=== PATIENT | female | born 1995 | race Caucasian/White ===

== ENCOUNTER 2020-05-31 16:36 | Outpatient (CLI) | payer OTHER, BC, SELFPAY ==
--- NOTE | ~2020-05-31 | US_ITS ---
EXAMINATION: US OB <= 14 weeks fetus DATE: 05/31/2020 17:17 INDICATION: Spotting during first trimester TECHNIQUE: Real-time pelvic transabdominal and transvaginal ultrasound was performed. COMPARISON: None. FINDINGS: The uterus measures 11.9 x 6.4 x 8.5 cm. There is an intrauterine gestational sac. A yolk sac is identified. heart motion is identified measuring 169 beats per minute (bpm) by M-mode Do ppler. The crown rump length measures 3.9 cm , which correlates with an estimated gestational a ge of 10 weeks and 3 day(s) (+/-) 5 day(s). The ovaries are not visualized however no adnexal abnormality is seen. There is no free fluid in the pelvis. IMPRESSION: 1. Live intrauterine with an estimated gestational age of 10 weeks and 3 day(s) (+/-) 5 day (s) and an estimated delivery date of 12/24/2020. Reviewed, dictated and finalized at location A. IMPRESSION: 1. Live intrauterine with an estimated gestational age of 10 weeks an d 3 day(s) (+/-) 5 day(s) and an estimated delivery date of 12/24/2020.
== END 2020-05-31 16:37 | disposition home or self-care (01) ==
PROVIDERS: PCP Obstetrics & Gynecology Gynecology; Visit Provider Obstetrics & Gynecology Gynecology
DX: O26.851 Spotting complicating pregnancy, first trimester (principal); Z3A.10 10 weeks gestation of pregnancy
CPT/HCPCS: 76801

== ENCOUNTER → 2020-07-26 15:21 | Outpatient (CLI) | payer OTHER, BC, SELFPAY ==
--- NOTE | ~2020-07-26 | US_ITS ---
EXAMINATION: US OB >= 14 weeks Fetus DATE: 07/26/2020 15:56 INDICATION: survey TECHNIQUE: Multiple obstetric sonographic images performed. FINDINGS: Ultrasound dated 05/31/2020 There is a single living fetus in vertex presentation. The placenta is anterior without placenta pre via. Placental margin measures 3.7 cm from the cervix. There is a linear septation in the amniotic fl uid which could represent uterine synechia versus amniotic band Amniotic fluid volume is normal. cardiac activity and movement is noted with a heart rate of 163 beats per minute. The following anatomy was identified as normal: 4 chamber heart 3 vessel cord cord insertion kidneys urinary bladder stomach spine diaphragm ventricles cisterna magna cerebellum The following biometric data were obtained: BPD: 43mm corresponds to gestational age 19 weeks 0 days. Head circumference: 164 mm corresponds to gestational age 19 weeks 1 days. Abdominal circumference: 135 mm corresponds to gestational age 19 weeks 0 days. Femur length: 29 mm corresponds to gestational age 19 weeks 0 days. Head circumference to abdominal circumference ratio: 1.21 (normal range for expected gestational age is 1.09-1.26). Estimated weight: 268 grams +/- 40 grams using Hadlock method. IMPRESSION: 1: Single living intrauterine with an estimated gestational age of 18weeks 6days by initial ultrasound measurements, with an EDC of 12/21/2020 in vertex presentation. 2. Normal survey. 3: Linear septation in the amniotic fluid which could represent uterine synechia versus amniotic band . Recommend attention to this on follow-up examination. Reviewed, dictated and finalized at location A. IMPRESSION: 1: Single living intrauterine with an estimated gestational age of 18 weeks 6days by initial ultrasound measurements, with an EDC of 12/21/2020 in [place] presentation. 2. Normal survey. 3: Linear septation in the amniotic fluid which could represent uterine synechi a versus amniotic band. Recommend attention to this on follow-up examination.
== END ==
PROVIDERS: PCP Nurse Practitioner Family; Visit Provider Obstetrics & Gynecology Gynecology
DX: Z36.89 Encounter for other specified antenatal screening (principal); Z3A.18 18 weeks gestation of pregnancy
CPT/HCPCS: 76805

== ENCOUNTER 2020-12-17 16:01 | Observation (INO) | payer OTHER, BC, SELFPAY ==
--- NOTE | 2020-12-17 16:01 | OBADM ---
This patient, Debra Becerra, admitted to the OB room Labor/Delivery/Recovery 105 for observation. Patient/family oriented to hospital policies and general routines including ID bracelet, bed and alarms, visiting hours, pain management, procedures, bathroom and other care routines, personal items, smoking policy, room service/diet, and visiting hours. Patient/Family are encouraged to report perceived risks to care and to ask questions if they do not understand what they are told or what they should do.
[2020-12-17 18:37] VITALS: BMI 38.2
--- NOTE | 2020-12-31 21:05 | PM.OBTRLD ---
OB - Triage/Final Diagnosis Visit Information Comments/Additional reasons for admission: I have assessed the risk for this patient, Debra Becerra, and determined that she would benefit from observation care. Final Diagnosis (1) Third trimester bleeding: Code(s): O46.93 - Antepartum hemorrhage, unspecified, third trimester Status: Acute
== END 2020-12-17 19:02 | disposition home or self-care (01) ==
PROVIDERS: Admitting Provider Obstetrics & Gynecology; PCP Family Medicine; Visit Provider Obstetrics & Gynecology
DX: O46.93 Antepartum hemorrhage, unspecified, third trimester (principal); Z3A.00 Weeks of gestation of pregnancy not specified
CPT/HCPCS: G0378; G0379

== ENCOUNTER 2020-12-18 08:10 | Outpatient (CLI) | payer OTHER, BC, SELFPAY ==
[2020-12-18 08:55] VITALS: BP 118/79; PULSE 100
--- NOTE | 2020-12-18 09:01 | PC.NURSE ---
Dr. Jacobs notified regarding pt's arrival, c/o, reactive NST, and assessment findings of negative ROM plus. Received orders to discharge patient to home.
== END 2020-12-18 09:10 | disposition home or self-care (01) ==
LOC: ANHOBOP 09:08 → ANHLDR 09:21
PROVIDERS: PCP Family Medicine; Visit Provider Obstetrics & Gynecology Gynecology
DX: O46.90 Antepartum hemorrhage, unspecified, unspecified trimester (principal); Z3A.00 Weeks of gestation of pregnancy not specified
CPT/HCPCS: 59025; 84112; 99199

== ENCOUNTER 2020-12-20 04:40 | Inpatient (IN) | payer OTHER, BC, SELFPAY ==
[2020-12-20] VITALS (48 sets, daily range): BP systolic 71–159; BP diastolic 18–122; PULSE 56–109; RESP 16; TEMP 36.4–36.8; O2SAT 97–100; BMI 37.8
--- NOTE | 2020-12-20 04:58 | LDADM ---
This patient, Debra Becerra, was admitted to Labor/Delivery/Recovery 107 on 12/20/20 at 04:40. Plans for labor, pain management and were discussed with patient. Patient/family oriented to hospital policies and general routines including ID bracelet, bed and alarms, visiting hours, pain management, procedures, bathroom and other care routines, personal items, smoking policy, room service/diet and guest tray routines, infant security routines, and visiting hours. Patient/Family are encouraged to report perceived risks to care and to ask questions if they do not understand what they are told or what they should do. See OBIX for further documentation.
[2020-12-20] MEDS: LACTATED RINGERS 1,000 ML 125 ML IV CONT ×2 (05:15→06:22)
[2020-12-20] MEDS: OXYTOCIN 30 UNITS/NS 500 ML 30 UNITS/500 ML BAG IV CONT ×2 (05:15→09:46)
[2020-12-20] MEDS: AMPICILLIN 2 GM/NS 100 ML 2 GM/100 ML BAG IVPB (05:16)
[2020-12-20 05:27] LABS: Basophils Percent Auto 0.3 % (0.2-1.2); Eosinophils Absolute Auto 0.2 K/mm3 (0-0.3); Hematocrit 33.8 % (37.0-47.0); Hemoglobin 10.8 g/dL (12.0-15.0); Immature Granulocyte Absolute 0.11 K/mm3 (0.00-0.031); Immature Granulocyte Percent A 0.8 % (0-0.5); Immature Platelet Fraction Pct 10.7 % (0.9-11.2); Lymphocytes Absolute Auto 2.24 K/mm3 (0.9-3.2); Lymphocytes Percent Auto 15.4 % (18.3-44.2); Mean Corpuscular Hemoglobin 26.4 pg (26-34); Mean Corpuscular Volume 82.6 fl (80-100); Mean Platelet Volume 12.3 fl (7.4-10.4); Monocytes Absolute Auto 0.7 K/mm3 (0.1-0.6); Neutrophils Absolute Auto 11.3 K/mm3 (1.3-6.7); Neutrophils Percent Auto 77.5 % (45.5-73.1); Platelet Count Result 193 k/mm3 (150-375); Red Blood Count 4.09 M/mm3 (4.2-5.4); Red Cell Distribution Width 14.3 % (11.5-14.5); White Blood Count 14.6 K/mm3 (4.5-10.0)
--- NOTE | 2020-12-20 06:31 | WPDANESEPP ---
Anes - Eval Pre Procedure Procedure: labor epidural Date/Time: 12/20/20 06:31 Surgeon: latrice Preop Diagnosis: pain during labor Pre Op Diagnosis: Induction of Labor Patient Data Age: 25 Gender: F Height: 1.6 m Weight: 97 kg Last Vital Signs Temp 36.4 C 12/20/20 05:18 Pulse 82 12/20/20 06:30 BP 122/78 12/20/20 06:30 Pulse Ox 100 12/20/20 06:29 Allergies Allergy/AdvReac Type Severity Reaction Status Date / Time nitrofurantoin Allergy Severe Other Verified 10/01/20 11:19 Home Medications Medication Instructions Recorded Confirmed Type aspirin 81 mg tablet,delayed 81 mg PO DAILY 10/01/20 11/29/20 History release ergocalciferol (vitamin D2) 1,250 1,250 mcg PO WEEKLY 10/01/20 11/29/20 History mcg (50,000 unit) capsule metformin 500 mg tablet 500 mg PO DAILY 10/01/20 11/29/20 History prenat.vits,duarte,rxz-dxzs-qxoyx 1 tablet PO DAILY 10/01/20 11/29/20 History Laboratory Tests 12/20/20 12/20/20 05:08 05:08 WBC 14.6 K/mm3 H K/mm3 (4.5-10.0) RBC 4.09 M/mm3 L M/mm3 (4.2-5.4) Hgb 10.8 g/dL L g/dL (12.0-15.0) Hct 33.8 % L % (37.0-47.0) MCV 82.6 fl fl (80-100) MCH 26.4 pg pg (26-34) MCHC 32.0 g/dl g/dl (32-36) RDW 14.3 % % (11.5-14.5) Plt Count 193 k/mm3 k/mm3 (150-375) MPV 12.3 fl H fl (7.4-10.4) Immature Gran % (Auto) 0.8 % H % (0-0.5) Neut % (Auto) 77.5 % H % (45.5-73.1) Lymph % (Auto) 15.4 % L % (18.3-44.2) [place] % (Auto) 5.0 % % (2.6-8.5) Eos % (Auto) 1.0 % % (0-4.4) Baso % (Auto) 0.3 % % (0.2-1.2) Lymph # (Auto) 2.24 K/mm3 K/mm3 (0.9-3.2) [place] # (Auto) 0.7 K/mm3 H K/mm3 (0.1-0.6) Eos # (Auto) 0.2 K/mm3 K/mm3 (0-0.3) Baso # (Auto) 0.0 K/mm3 K/mm3 (0.0-0.1) Abs Immat Gran (auto) 0.11 K/mm3 H K/mm3 (0.00-0.031) Absolute Neuts (auto) 11.3 K/mm3 H K/mm3 (1.3-6.7) Absolute Nucleated RBC 0.0 K/mm3 K/mm3 (0.0-0.012) Nucleated RBC % 0.0 % % (0.0-0.2) % Immature Plt Fraction 10.7 % % (0.9-11.2) RPR Pending Patient hx anesthesia problems: none Family hx anesthesia problems: none PMFSH Past Medical History Medical History (Updated 12/20/20 @ 06:32 by Zarina Amador CRNA) Obesity (BMI 35.0-39.9 without comorbidity) PCOS (polycystic ovarian syndrome) Family History Family History (Updated 10/01/20 @ 11:24 by Kimmie Franco [facility]) Grandparent Diabetes mellitus Heart disease Grandparent Diabetes mellitus Depression Endometrial cancer Grandparent Diabetes mellitus Lung cancer Grandparent Diabetes mellitus Glaucoma Social History Social History Smoking status: Never smoker Substance use: never Gender identity (if verbalized by the patient): Female Spiritual care concerns: No Exam Day of Procedure 12/20/20 06:31
--- NOTE | 2020-12-20 07:20 | WPDOBADMIT ---
Obstetrics - Admit Note Admission Note: record reviewed. No pertinent additions to the history and/or any subsequent changes in the physical findings that are not consistent with the expected course of the were found. Additions to the history and/or subsequent changes in the physical findings follow. Planned for MIL this am but had SROM yesterday at 4 pm. Patient did not come in until 4:40 am. Now3-4 cm. FHTs reactive. Continue pitocin
[2020-12-20] MEDS: ONDANSETRON INJ 4 MG/2 ML VIAL IV PUSH (07:39)
[2020-12-20] MEDS: AMPICILLIN 1 GM/NS 50 ML 1 GM/50 ML BAG IVPB (08:43)
--- NOTE | 2020-12-20 09:22 | PM.OBPRVD ---
OB - Delivery Note Procedure Delivery date: 12/20/20 Procedure: events: Labor Induction Intrapartal events: None Induction method: per pitocin protocol Delivery monitor: external FHT and external uterine Route of delivery: Laceration Description: Periurethral and Perineal - 2nd Degree Delivery repair: vicryl (3-0 vicryl) Specimen: No Quantitative Blood Loss (ml): 225 Anesthesia type: Epidural Disposition: PACU Baby Date of : 12/20/20 Time of : 09:11 Weeks of gestation at delivery: 39 gender: Female Weight (pounds): 7 Weight (ounces): 8 presentation: vertex position: Left Occiput Anterior Placenta delivery description: Spontaneous cord vessel description: 3 Vessels and Nuchal Cord (nuchal cord x 2 and around right shoulder) score one minute: 8 score five minutes: 9
--- NOTE | 2020-12-20 09:24 | PM.OBDSVD ---
DS: Admitting Diagnosis Admitting Diagnosis Admitting Diagnosis: IUP 39 wks SROM DS: Discharge Diagnosis Discharge Diagnosis (1) SROM (spontaneous rupture of membranes): Status: Acute (2) (normal spontaneous vaginal delivery): Code(s): O80 - Encounter for full-term uncomplicated delivery Status: Acute OB - DS: Summary OB Procedures : Ultrasound OB Procedures Intrapartum: Spontaneous Vag Delivery OB Procedures: : None Peripartum Data Delivery Method: Natural Vaginal Laceration Description: Periurethral and Perineal - 2nd Degree complications: none Status at Discharge Functional status at discharge: independent ambulation Overall status at discharge: patient is progressing back to baseline Time Spent with Patient Time attestation: Total time spent providing and/or coordinating discharge services: DS: Data Data Completed and Pending Labs on day of discharge: Labs from last 24 hours 12/20/20 12/20/20 12/20/20 05:08 05:08 05:08 WBC 14.6 H RBC 4.09 L Hgb 10.8 L Hct 33.8 L MCV 82.6 MCH 26.4 MCHC 32.0 RDW 14.3 Plt Count 193 MPV 12.3 H Immature Gran % (Auto) 0.8 H Neut % (Auto) 77.5 H Lymph % (Auto) 15.4 L [place] % (Auto) 5.0 Eos % (Auto) 1.0 Baso % (Auto) 0.3 Lymph # (Auto) 2.24 [place] # (Auto) 0.7 H Eos # (Auto) 0.2 Baso # (Auto) 0.0 Abs Immat Gran (auto) 0.11 H Absolute Neuts (auto) 11.3 H Absolute Nucleated RBC 0.0 Nucleated RBC % 0.0 % Immature Plt Fraction 10.7 RPR Pending Blood Type A Positive Antibody Screen Negative Discharge Plan Discharge Attending physician on discharge: Diamond Jacobs Discharging Clinician: Diamond Jacobs Anticipated Discharge Date/Time: 12/22/20 09:25 Patient Disposition: Home, Self-Care Activity: may shower and pelvic rest Diet: regular Discharge Instructions: Education: Mom and Baby Guide Given to: Mother Follow-Up: Call your delivering provider's office for an appointment to be seen in: 6 Weeks Mom and baby should come to the [facility] for the follow-up appointment. Appointment Date/Time: December 22, 2020 at 9:00 am What to expect at your follow-up visit: Blood Pressure Check Physical Assessment Call [phone] if you are unable to keep your appointment time. BREAST CARE: * Wear a snug supportive bra. * For engorgement discomfort: Breast Feeding: * Apply warm moist washcloths * Express milk as needed to relieve engorgement * Wear loose clothing Bottle Feeding: * May apply ice packs * For sore nipples: * Identify correct latch-on * Apply warm moist washcloths before and after nursing * Air dry nipples after nursing * May apply Lansinoh cream to nipples EPISIOTOMY/PERINEAL CARE: * Until bleeding stops, use your catrachita bottle after urinating * Change your pad frequently throughout the day * You may take sitz baths several times a day (fill your bathtub with warm water and soak for 20 minutes.) Do NOT bathe in the water * No tub baths until seen by your physician - You may shower ACTIVITY: * Rest as much as possible. * Do not exercise or lift anything heavier than your baby (such as laundry or other children.) * Avoid stairs or driving as much as possible. * Do not put anything into the vagina. No douching, tampons, or sexual activity until seen by physician. NOTIFY PHYSICIAN IF YOU HAVE ANY QUESTIONS OR IF ANY OF THE FOLLOWING SYMPTOMS OCCUR: * If your episiotomy or incision becomes red, swollen, or more painful than what you have experienced in the hospital. * If your vaginal bleeding becomes foul smelling. * If your vaginal bleeding becomes more heavy than a period or if your bleeding changes from pink to bright red. However, you may pass an occasional walnut-sized birgit
[2020-12-20] MEDS: WITCH HAZEL 40 PADS 1 PAD TOPICAL (11:43)
[2020-12-20] MEDS: BENZOCAINE 20% AER SPR (*SP) 56 GM CAN 1 SPRAY TOPICAL (11:43)
--- NOTE | 2020-12-20 11:53 | OBPPTRN ---
Patient transferred to post room # 280 via wheelchair. Support person present. Oriented to unit, room, information board, rooming in, admission packet and security measures. Patient verbalizes understanding.
[2020-12-20] MEDS: LORATADINE 10 MG TABLET PO (12:06)
--- NOTE | 2020-12-20 13:24 | PC.NURSE ---
Consulted with patient, reviewed feeding cues, frequencies, duration of feedings, feeding elimination flow sheet, and signs of adequate intake. Demonstrated stimulation techniques to wake for feeding. when I entered. Reviewed positioning/alignment, holding breast and asymmetrical latch on. Infant was able to latch correctly. nursed eagerly, with steady draws and frequent swallowing noted. Reviewed signs of a correct latch, effective nursing and suck swallow ratio. Infant was able to maintain latch with minimal discomfort to mother. Nipple care reviewed. Instructed mother to call out for RN assistance if she is unable to latch for feeding or she has discomfort with nursing. Instructed feeding should be initiated three hours from start of last feeding or if feeding cues are noted before. Mother voiced understanding of information shared.
[2020-12-20] MEDS: ACETAMINOPHEN 325 MG TABLET 650 MG PO ×2 (14:40→21:00)
[2020-12-20] MEDS: metFORMIN HCL XR 500 MG TAB.SR.24H PO (21:00)
[2020-12-21] MEDS: ACETAMINOPHEN 325 MG TABLET 650 MG PO (04:45)
[2020-12-21 05:19] LABS: Hematocrit 28.3 % (37.0-47.0)
[2020-12-21 07:45] VITALS: BP 93/51; PULSE 70; RESP 18; TEMP 36.5; O2SAT 99
[2020-12-21] MEDS: POLYSACCHARIDE IRON COMPLEX 150 MG CAPSULE PO (08:29)
[2020-12-21] MEDS: MULTIVIT/MIN/PREN/FOL AC/IRON TABLET 1 TAB PO (08:29)
[2020-12-21] MEDS: DOCUSATE SODIUM 100 MG CAPSULE PO (08:30)
--- NOTE | 2020-12-21 11:09 | WPDANLDPN2 ---
Anes-Prog Note L&D Date/Time: 12/21/20 11:09 Comfortable throughout: labor and delivery Neuraxial method: epidural Epidural/Spinal procedure site: clean & non-tender Neuro status: Neuro function grossly intact. Cardiovascular status: normal Respiratory status: normal Airway patency: baseline Mental status: baseline Post-Op hydration status: normal Vital Signs: Last Vital Signs Temp 36.5 C 12/21/20 07:45 Pulse 70 12/21/20 07:45 Resp 18 12/21/20 07:45 BP 93/51 L 12/21/20 07:45 Pulse Ox 99 12/21/20 07:45 Pain score (VAS): 0 Post-procedural complaints: none Patient feedback: Patient satisfied with anesthetic care.
--- NOTE | 2020-12-21 12:20 | PM.OBPNVD ---
OB - PN: Subj Subjective Date/time seen: 12/21/20 12:20 S: doing well desires home bleeding light OB - PN: Obj Data Labs CBC & Chem 7: 12/21/20 04:45 Labs: Laboratory Results - last 24 hr 12/21/20 04:45 Hgb 9.0 L Hct 28.3 L OB - PN A/P Assessment and Plan (1) (normal spontaneous vaginal delivery): Code(s): O80 - Encounter for full-term uncomplicated delivery Status: Acute Assessment and Plan: s/p desire home today. f/u in 6 weeks declines birthcontrol. Time Spent With Patient Time: Total time spent is greater than 50% in coordination of care (as documented) at patient's floor/unit and/or counseling patient: Exam GI: Other: ff below umbilicus
--- NOTE | 2020-12-21 12:34 | PC.NURSE ---
Mother verbalizes she is able to independently latch with appropriate positioning/alignment. She has minimal nipple discomfort, is feeding as required and waking to feed if needed. has had 12 effective feedings in the past 24 hours, and is currently meeting outcomes for weight, output, jaundice and feeding frequencies. Serum bilirubin drawn and peds aware of result. Mom choosing to supplementing with formula post feeding to help with jaundice. Mother states she feels confident to continue effective at home. Reviewed transition to breast milk, signs of adequate intake, and engorgement/relief. Instructed to call ICP if intake/output less than required. Reviewed community resources on the [facility] website and in the Mom/Baby guide. Information on outpatient services provided. Mother has no further questions at this time.
[2020-12-21] MEDS: MEASLES,MUMPS,RUBELLA VACCINE 0.5 ML VIAL SUB-Q (12:41)
[2020-12-21 14:27] LABS: Rapid Plasma Reagin Non-Reactive (NonReactive)
== END 2020-12-21 13:50 | disposition home or self-care (01) | DRG 807 ==
LOC: ANHLDR 09:26 → ANHOB2 12-21 12:28 → ANHLDR 12-24 11:03 → ANHOB2 12-24 11:03
PROVIDERS: Admitting Provider Obstetrics & Gynecology Gynecology; PCP Family Medicine; Visit Provider Obstetrics & Gynecology
DX: O99.824 Streptococcus B carrier state complicating childbirth (principal); Z37.0 Single live birth; O71.82 Other specified trauma to perineum and vulva; O70.1 Second degree perineal laceration during delivery; O69.81X0 Labor and delivery complicated by cord around neck, without compression, not applicable or unspecified; Z3A.39 39 weeks gestation of pregnancy; O99.284 Endocrine, nutritional and metabolic diseases complicating childbirth; E28.2 Polycystic ovarian syndrome
CPT/HCPCS: 36415; 85014; 85018; 85025; 85055; 86592; 86850; 86900; 86901; 90710; A9270; J0290; J2405; J2590; J2795; J7120

== ENCOUNTER → 2022-07-19 07:37 | Outpatient (CLI) | payer OTHER, SELFPAY ==
--- NOTE | ~2022-07-19 | XR_ITS ---
EXAM: XR lumbar spine 2-3V DATE: 07/19/2022 07:50 HISTORY: M54.50 - Low back pain, unspecified . COMPARISON: None available. FINDINGS: 5 nonrib-bearing lumbar-type vertebral bodies. Pedicles intact. Normal vertebral body alig nment. Vertebral body heights preserved. Disc spaces maintained. Normal facets and posterior elements . No fracture or dislocation. 4 mm calcification projecting over the left lower renal pole which may represent a nephrolith or artifact. IMPRESSION: Possible 4 mm left lower pole nephrolith. Reviewed, dictated and finalized at location K.
== END ==
PROVIDERS: PCP Family Medicine; Visit Provider Physician Assistant Medical
DX: M54.50 Low back pain, unspecified (principal)
CPT/HCPCS: 72100

== ENCOUNTER → 2022-07-22 08:43 | Outpatient (CLI) | payer OTHER, SELFPAY ==
--- NOTE | ~2022-07-22 | XR_ITS ---
EXAMINATION: XR abdomen/kub 1V INDICATION: Low back pain TECHNIQUE: Supine views of the abdomen were obtained on 2 radiographs. COMPARISON: 07/19/2022 FINDINGS: There appears to be a 3 mm stone in the left kidney lower pole. The bowel gas pattern is no rmal. A phlebolith is noted in the left pelvis. The osseous structures are unremarkable. IMPRESSION: 1. Probable stone in the left kidney lower pole. Reviewed, dictated and finalized at location B.
== END ==
PROVIDERS: PCP Family Medicine; Visit Provider Physician Assistant Medical
DX: M54.50 Low back pain, unspecified (principal)
CPT/HCPCS: 74018

== ENCOUNTER 2022-09-30 07:15 | Outpatient (CLI) | payer OTHER, SELFPAY ==
--- NOTE | ~2022-09-30 | MR_ITS ---
EXAMINATION: MR lumbar spine wo con DATE: 09/30/2022 07:48 INDICATION: Sciatic pain with lumbar back pain radiating down to the right foot for 2 years. TECHNIQUE: Magnetic resonance imaging (MRI) of the lumbar spine was performed without intravenous con trast. Sequences included sagittal T2-weighted FSE, sagittal T2-weighted FS FSE, sagittal T1-weighted FSE, and axial T2-weighted FSE. COMPARISON: None FINDINGS: Alignment is normal. Vertebral body heights are normal. Normal marrow signal. Disc heights are yung l. The conus medullaris terminates at T12. There is normal signal in the caudal spinal cord. Small am ount of likely physiologic free fluid in the cul-de-sac. Paravertebral soft tissues are unremarkable. The following disc levels are specifically discussed: T12-L1 and L1-L2: The disc does not extend beyond the endplate margin. There is minimal to mild bilat eral facet joint osteoarthritis. There is no neural foraminal stenosis. There is no central canal andrei nosis. L2-L3 and L3-L4: Mild disc protrusions at the bilateral foraminal zones. There is mild bilateral face t joint osteoarthritis. There is minimal bilateral neural foraminal stenosis. There is no central can al stenosis. L4-L5: Disc is mildly bulging. There is mild to moderate bilateral facet joint osteoarthritis. There is mild right and minimal left neural foraminal stenosis. There is no central canal stenosis. L5-S1: Disc is mildly bulging. There is mild bilateral facet joint osteoarthritis. There is no neural foraminal stenosis. There is no central canal stenosis. IMPRESSION: 1. Minimal to mild lumbar spondylosis. Reviewed, dictated and finalized at location B.
== END 2022-09-30 07:16 ==
PROVIDERS: PCP Family Medicine; Visit Provider Physician Assistant Medical
DX: M54.30 Sciatica, unspecified side (principal); M47.896 Other spondylosis, lumbar region
CPT/HCPCS: 72148

== ENCOUNTER 2023-08-13 18:52 | Emergency (ER) | payer OTHER, SELFPAY ==
[2023-08-13 18:55] VITALS: BP 145/86; PULSE 102; RESP 16; TEMP 37.1; O2SAT 97
--- NOTE | 2023-08-13 19:29 | PC.NURSE ---
Pt to intake desk and states she wants to leave. Pt ambulated to exit without difficulty
== END 2023-08-13 19:29 | disposition left against medical advice (07) ==
LOC: ANHED 19:34
PROVIDERS: PCP Family Medicine
DX: O87.2 Hemorrhoids in the puerperium (principal)
CPT/HCPCS: 99199

== ENCOUNTER → 2023-12-08 08:26 | Outpatient (CLI) | payer OTHER, BC, SELFPAY ==
--- NOTE | ~2023-12-08 | MR_ITS ---
MRI of the lumbar spine Clinical History: Back pain Technique: Axial T2-weighted images, and sagittal T1-weighted, T2-weighted, and and T2 fat-sat images were acquired. COMPARISON: 09/30/2022 Findings: There is no fracture or subluxation of the lumbar spine. Vertebral bodies maintain normal h eight and alignment. No bone marrow signal abnormality seen. Intervertebral discs maintain normal signal and position throughout the lumbar spine. No disc bulge o r herniation seen at any lumbar level. There is moderate facet arthropathy at L4-L5 and L5-S1. No spi nal canal stenosis or neural foraminal narrowing seen at any lumbar level. Paravertebral soft tissues are unremarkable. Impression: Facet arthropathy at the lower lumbar spine, as above, otherwise essentially unremarkable exam. Reviewed, dictated and finalized at [facility]. ETRICIAN Impression: Facet arthropathy at the lower lumbar spine, as above, otherwise essentially un remarkable exam.
== END ==
PROVIDERS: PCP Nurse Practitioner Family; Visit Provider Nurse Practitioner Family
DX: M54.51 Vertebrogenic low back pain (principal); M47.816 Spondylosis without myelopathy or radiculopathy, lumbar region
CPT/HCPCS: 72148

== ENCOUNTER 2024-10-25 08:40 | Emergency (ER) | payer OTHER, BC, SELFPAY ==
--- NOTE | ~2024-10-25 | CT_ITS ---
EXAMINATION: CT brain wo con DATE: 10/25/2024 11:32 INDICATION: Head injury. Headache. TECHNIQUE: Computed tomography (CT) of the head was performed without intravenous contrast. The mA wa s adjusted according to patient size. Iterative reconstruction technique was employed. The dose-lengt h product was 605.33 mGy-cm. COMPARISON: None FINDINGS: There is no intracranial hemorrhage, acute infarction, or abnormal intracranial mass lesion . The ventricles are normal in size. The orbits are normal. The paranasal sinuses are clear. The mast oid air cells are normal. IMPRESSION: 1. Normal brain. Reviewed, dictated and finalized at location A. OR LPN IMPRESSION: 1. Normal brain.
[2024-10-25 08:45] VITALS: BP 122/78; PULSE 73; RESP 16; TEMP 36.8; O2SAT 98
[2024-10-25 11:10] VITALS: BP 118/72; PULSE 69; RESP 13; TEMP 37.1; O2SAT 99
[2024-10-25 12:48] VITALS: BP 118/72; PULSE 68; RESP 13; TEMP 37.2; O2SAT 98
--- NOTE | 2024-10-25 13:06 | ED.HEATRA ---
HPI - Head Injury General Chief complaint: Head Injury Stated complaint: head injury 2 days ago Time Seen by Provider: 10/25/24 11:11 History of Present Illness HPI Narrative: 29-year-old otherwise healthy female presenting to the emergency department for evaluation of a concussion. She sustained a closed head injury on a playground while playing with her kids 2 days prior. Since then she has been having some intermittent nausea, vomiting and ?dizziness . She has a history of vertigo and states this feels similar. Endorses a headache presently but denies any analgesia medications she states she feels okay otherwise. Patient was to make sure she is not injure herself significantly. Does not take any blood thinner medications has no history of seizure disorder and did not lose consciousness during the incident. No significant head trauma but she did hit head on a metal rail while standing up suddenly. Related Data Home Medications Medication Instructions Recorded Confirmed vits no.[id number]-ferrous fum tablet PO DAILY 05/10/24 09/06/24 28 mg iron-folic acid 800 mcg tablet (Classic ) ascorbic acid (vitamin C) 500 mg 500 mg PO DAILY 09/06/24 09/06/24 tablet cholecalciferol (vitamin D3) 125 125 mcg PO DAILY 09/06/24 09/06/24 mcg (5,000 unit) capsule ferrous sulfate-folic acid ER 160 tablet PO 09/06/24 09/06/24 mg-0.4 mg tablet ext.release 24 hr Allergies Allergy/AdvReac Type Severity Reaction Status Date / Time nitrofurantoin Allergy Severe Other Verified 10/25/24 08:48 Review of Systems Review of Systems: As reviewed above in HPI [facility] Past Medical History Medical History Allergies Gestational diabetes Low back pain (normal spontaneous vaginal delivery) Obesity (BMI 35.0-39.9 without comorbidity) PCOS (polycystic ovarian syndrome) SROM (spontaneous rupture of membranes) Third trimester bleeding Surgical History Surgical History No history of previous surgery Family History Family History Grandparent Diabetes mellitus Heart disease Grandparent Diabetes mellitus Depression Endometrial cancer Grandparent Diabetes mellitus Lung cancer Grandparent Diabetes mellitus Glaucoma Father Diabetes mellitus Mother Asthma Anxiety and depression Sibling Anxiety and depression Social History Social History Social History: 09/03/24 very confident with medical forms Smoking status: Never smoker Second hand tobacco smoke exposure: No Alcohol intake: current Substance use: never Substance use type: does not use Do You Feel Safe in your Home?: Yes Lack of Transportation: No Lack of Food: Never True Current Housing: I Have Housing Concerned About Future Housing: No Difficulty Paying Gas/Electric Bills: No Difficulty Paying for Meds: No Currently Unemployed: No Education: High School Diploma/GED Difficulty w/ Childcare or Family Care: No Living arrangements: with family Additional living arrangements comments: Occupation/Education: occupation Additional occupation/education comments: [employer] E[employer] at [employer] Gender identity (if verbalized by the patient): Female Spiritual care concerns: No Agree to blood products: Yes Exam Narrative: GENERAL: [Well-appearing, well-nourished, and in no acute distress.] HEAD: [Normocephalic, atraumatic.] EYES: [PERRLA and EOMI.] ENT: Nares clear, no rhinorrhea or epistaxis. Mucous membranes moist. NECK: Supple. CHEST: [Clear to auscultation. No respiratory distress.] HEART: [Regular rate and rhythm]. No murmur heard. [Normal peripheral pulses.] ABDOMEN: [Soft, nondistended], [nontender], [No rigidity or guarding] EXTREMITIES: Normal range of motion. [No edema.] SKIN: Warm, dry, no rash. NEURO: [No focal deficits]. Alert and oriented [x3.] PSYCH: [Normal mood and affect.] Course Vital Signs Vital signs: Vital Signs Temperature 36.8 C 10/25/24 08:45 Pulse Rate 73 10/25/24 08:45 Respiratory Rate 16 10/25/24 08:45 Blood Pressure 122/78 10/25/24 08:45 Pulse Oximetry 98 10/25/24 08:45 Temperature 37.2 C 10/25/24 12:48 Pulse Rate 68 10/25/24 12:48 Respiratory Rate 13 10/25/24 12:48 Blood Pressure 118/72 10/25/24 12:48 Pulse Oximetry 98 10/25/24 12:48 MDM - Head Injury MDM Narrative Medical decision making narrative: 29-year-old female presenting after sustaining a closed head injury 2 days prior. She has been having some concussion type symptoms including vague nausea vomiting, dizziness. Did not lose consciousness and does not take any blood thinner medications. No history of seizure disorder. She otherwise appears well not any acute distress. Normal reassuring vital signs. Normal neurological assessment without any weakness, sensory changes or lateralizing symptoms. She otherwise appears well and head CT was ordered this time given her persistent symptoms for last 2 days. Differential likely closed head injury with concussion type syndrome without loss of consciousness. Postconcussive syndrome, less likely intracranial process such as a subarachnoid, subdural or epidural hematoma. CT scan showed normal brain without any acute findings. Patient stable for discharge home at this time with return precautions and concussion precautions. Patient verbalized understanding and safe for discharge at this time. Patient can take [id number] pain medications for relief of symptoms home. Differential Diagnosis Differential diagnosis: Likely concussion without loss of consciousness, epidural hematoma, closed head injury, subarachnoid hematoma, postconcussion syndrome, subdural hematoma, concussion with loss of consciousness and other Medical Records Attestation: I reviewed the patient's medical records. Imaging Data Attestation: I personally reviewed and interpreted this imaging study as follows: Radiologist's impression: Impressions Head CT 10/25/24 11:33 IMPRESSION: 1. Normal brain. Discharge Plan Discharge Clinical Impression: Concussion, CHI (closed head injury) Patient Disposition: Home, Self-Care Condition: Stable Instructions: Antibiotic Form, Concussion (ED) Additional Instructions: Return with any new or worsening symptoms. Refrain from physical exertion for the next week or until no persistent symptoms. Prescriptions: No Action Classic 28 mg iron- 800 mcg tablet PO DAILY sertraline 100 mg tablet 100 mg PO DAILY Qty: 90 0RF metformin 500 mg tablet extended release 24 hr 500 mg PO QPM Qty: 90 0RF cholecalciferol (vitamin D3) 125 mcg (5,000 unit) capsule 125 mcg PO DAILY ascorbic acid (vitamin C) 500 mg tablet 500 mg PO DAILY ferrous sulfate-folic acid 160-0.4 mg tablet extended release 24 hr PO doxycycline hyclate 100 mg tablet 100 mg PO BID Qty: 20 0RF Follow-up/Referrals: Aisha Frias APRN [Primary Care Provider] - Time of Disposition: 13:08
== END 2024-10-25 13:15 | disposition home or self-care (01) ==
PROVIDERS: Emergency Provider Student in an Organized Health Care Education/Training Program; PCP Nurse Practitioner Family
DX: S06.0X0A Concussion without loss of consciousness, initial encounter (principal); E66.9 Obesity, unspecified; Z68.39 Body mass index [BMI] 39.0-39.9, adult; X58.XXXA Exposure to other specified factors, initial encounter
CPT/HCPCS: 70450; 99284